=== PATIENT | female | born 1975 | race Caucasian/White ===

== ENCOUNTER 2017-01-19 12:12 | Observation (INO) ==
--- NOTE | 2017-01-19 12:23 | Emergency Department Note ---
Disposition Clinical Impression: Pneumonia, Bacteremia Disposition: Admitted As Inpatient Condition: Fair Referrals: Tyree Quijano CNP [Primary Care Provider] - Forms: ED Satisfaction Letter Time of Disposition: 14:33 ([facility]) General Adult HPI - General Chief complaint: ED Urogenital-Female Stated complaint: UTI Time Seen by Provider: 01/19/17 12:21 Source: patient Mode of arrival: ambulatory Limitations: no limitations Nursing Notes Reviewed: Yes Vital Signs Reviewed: Yes - History of Present Illness HPI Narrative: Patient received a call from her family physician telling her she needed emergency room right away that she had positive blood culture and positive urine culture and that she needs to be evaluated patient presents here the ER and tells me that she is having cough congestion she has CIPD she thought the day when she was at the doctor's office that she had pneumonia they did a urine on her the doctor's office she was told that she had gross amount of leukoesterase and blood and that she had a nasty urinary tract infection she was given Levaquin but is not having any results patient does have a 24-hour catheter in because of her COPD as result the patient is here to request with family physician Onset (ago): day(s) Location: other (generalized ) Radiation: non-radiation Pain Severity: moderate Pain Scale: 5 Quality: aching Consistency: constant Improves with: nothing Worsens with: nothing Associated symptoms: Reports: cough, fever/chills, loss of appetite, malaise, nausea/vomiting, shortness of breath, weakness. Denies: confusion, chest pain, diaphoresis, headaches, seizure, syncope Treatments Prior to Arrival: other (levaquin and has seen her medical provider) - Related Data Home Medications Medication Instructions Recorded Confirmed Gabapentin [Neurontin] 800 mg PO TID 11/21/14 01/19/17 Insulin ASPART [NovoLOG] 0 unit SQ TIDWM 11/21/14 01/19/17 Insulin DETEMIR [Levemir] 50 unit SQ HS 11/21/14 01/19/17 Ibuprofen [Motrin] 800 mg PO Q8HR PRN 03/03/15 01/19/17 Atorvastatin Calcium [Lipitor] 20 mg PO DAILY 08/18/15 01/19/17 Estradiol 1 tab PO DAILY 08/18/15 01/19/17 Progesterone 200 mg PO HS 08/18/15 01/19/17 ARIPiprazole [Abilify] 2 mg PO HS 01/19/17 01/19/17 Oxycodone HCl/Acetaminophen 1 each PO Q8HR 01/19/17 01/19/17 [Percocet 5-325 mg Tablet] Sertraline [Zoloft] 200 mg PO DAILY 01/19/17 01/19/17 Trazodone HCl 150 mg PO HS 01/19/17 01/19/17 Allergies Allergy/AdvReac Type Severity Reaction Status Date / Time cefepime Allergy Rash Verified 11/21/14 08:45 nitrofurantoin Allergy Anaphylaxis Verified 01/19/17 12:14 [From Macrobid] All systems ED: reviewed and negative except as stated. Review of Systems: As Per HPI Constitutional: Reports: fever, weakness. Denies: chills Eyes: Denies: eye pain, eye discharge ENT ED: Denies: ear pain, throat pain Cardiovascular: Denies: chest pain, palpitations, dyspnea on exertion Respiratory: Reports: cough, dyspnea, wheezes. Denies: sputum production Gastrointestinal: Reports: nausea. Denies: abdominal pain, vomiting Genitourinary: Reports: frequency. Denies: urgency, dysuria Musculoskeletal: Denies: back pain, neck pain Integumentary: Denies: rash, abrasion, lesions Neurological: Denies: headache, weakness Psychiatric: Denies: anxiety, depression Endocrine: Denies: fatigue Hematological/Lymphatic: Denies: easy bleeding Allergic/Immunologic: Denies: facial swelling Past Medical History - Past Medical History Attestation: Yes The following information was validated with the patient. Source: patient, old records reviewed, nursing notes reviewed Medical history: Reports: cancer, dementia, diabetes, other (CIPD) Surgical history: Reports: , other (Bone marrow transplant, D&C) Psychiatric history: Reports: anxiety, depression SLP history: Reports: no SLP history - Social History Smoking Status: Former smoker Smokeless Tobacco Status: Yes (Vapor) Alcohol use: Reports: none Drug use: Reports: none Physical Exam - General Limitations: physical limitation (ambulates with a cane due to CIPD) General appearance: alert, in no apparent distress, anxious - Head Head exam: atraumatic, normocephalic, normal inspection - Eye Eye exam: Present: normal appearance, PERRL, EOMI - ENT ENT exam: normal exam, normal oropharynx, mucous membranes moist, normal external ear exam - Neck Neck exam: Present: normal inspection, full ROM, trachea midline - Chest Chest inspection: Present: normal inspection, symmetric chest wall rise - Respiratory Respiratory exam: Present: normal lung sounds bilaterally - Cardiovascular Cardiovascular exam: Present: regular rate, normal rhythm, normal heart sounds - Abdominal Exam Abdominal exam: Present: soft, Non-Tender, normal bowel sounds. Absent: mass, pulsatile mass - Extremities Exam Extremities exam: Present: normal inspection, full ROM, normal capillary refill. Absent: tenderness, pedal edema, joint swelling, calf tenderness - Expanded Lower Extremity Exam Neurovascular/Tendon exam: Present: normal capillary refill, normal fine/light touch. Absent: pulse deficit Gait: antalgic - Back Exam Back exam: Present: normal inspection, full ROM. Absent: muscle spasm - Neurological Exam Neurological exam: Present: alert, oriented X3, CN II-XII intact, normal gait - Psychiatric Psychiatric exam: Present: normal affect, normal mood - Skin Skin exam: Present: warm, dry, intact, normal color Course Course Narrative: Patient is seen and examined laboratory data is repeated and including drawing a blood culture off her 24 catheter patient was then admitted after discussion of the findings a chest x-ray consistent with pneumonia when compared to previous chest x-ray report patient be transferred circinate Dr. Sears stable condition if her calf culture does come up positive she has asked that we send her back to [facility] Vital Signs Temperature 96.8 F L 01/19/17 12:18 Pulse Rate 98 01/19/17 12:18 Respiratory Rate 18 01/19/17 12:18 Blood Pressure 139/78 01/19/17 12:18 O2 Sat by Pulse Oximetry 97 01/19/17 12:18 Temperature 96.8 F L 01/19/17 13:34 Pulse Rate 90 01/19/17 14:42 Respiratory Rate 17 01/19/17 14:42 Blood Pressure 133/76 01/19/17 14:42 O2 Sat by Pulse Oximetry 95 01/19/17 14:42 Oxygen Delivery Oxygen Delivery Room Air Medical Decision Making - [facility] Narrative Medical decision making narrative: Pneumonia bronchitis UTI bacteremia she has Escherichia coli in her bloodstream which is most likely consistent with that of urine but she has a twin Port-A- Cath which could be contamination in addition that we have to consider some underlying atypical pneumonia - Medical Records Medical records reviewed: Yes I reviewed the patient's medical records. - Lab Data Lab results reviewed: Yes I reviewed the patient's lab results. Result diagrams: 01/19/17 12:50 01/19/17 12:50 Lab Results 01/19/17 01/19/17 01/19/17 Range/Units 12:50 12:50 12:50 WBC 13.5 H (4.3-11.1) K/mcL RBC 3.06 L (3.82-4.97) M/mcL Hgb 10.1 L (11.5-15.4) g/dL Hct 29.5 L (35.3-44.9) % MCV 96.4 (83.0-100.0) fL MCH 33.0 (28.0-33.3) pg MCHC 34.2 (31.6-35.5) g/dL RDW 12.7 (11.5-14.5) % Plt Count 244 (140-400) K/mcL MPV 9.8 (9.4-12.4) fL Immature Gran % 0.4 (0-4) % Seg Neutrophils % 84.4 % Lymphocytes % 5.7 % Monocytes % 8.6 % Eosinophils % 0.7 % Basophils % 0.2 % Neutrophils # 11.4 H (1.6-8.9) K/mcL Lymphocytes # 0.8 (0.6-4.6) K/mcL Monocytes # 1.2 (0.0-1.3) K/mcL Eosinophils # 0.1 (0.0-0.6) K/mcL Basophils # 0.0 (0.0-0.2) K/mcL PT (9.4-12.1) Seconds INR APTT 36.9 H (26.0-36.0) Seconds Sodium 140 (136-145) mEq/L Potassium 5.0 H (3.5-4.5) mEq/L Chloride 106 (98-109) mEq/L Carbon Dioxide 21 (19-29) mEq/L BUN 34 H (7-20) mg/dL Creatinine 1.15 H (0.57-1.11) mg/dL Est GFR ( Amer) > 60 (> 60) Est GFR (Non-Af Amer) 52 L (> 60) BUN/Creatinine Ratio 30 H (6-26) Glucose 89 (70-99) mg/dL Calculated Osmolality 297 (280-300) Lactic Acid (0.5-2.2) mmol/L Calcium 9.8 (8.6-10.8) mg/dL Total Bilirubin 0.3 (0.2-1.2) mg/dL AST 32 (5-34) Units/L ALT 27 (0-55) Units/L Alkaline Phosphatase 319 H (38-126) Units/L Serum Total Protein 7.2 (6.0-8.3) g/dL Albumin 1.9 L (3.5-5.0) g/dL Globulin 5.3 H (2.4-3.5) g/dL Albumin/Globulin Ratio 0.4 L (1.1-2.2) 01/19/17 01/19/17 Range/Units 12:50 12:50 WBC (4.3-11.1) K/mcL RBC (3.82-4.97) M/mcL Hgb (11.5-15.4) g/dL Hct (35.3-44.9) % MCV (83.0-100.0) fL MCH (28.0-33.3) pg MCHC (31.6-35.5) g/dL RDW (11.5-14.5) % Plt Count (140-400) K/mcL MPV (9.4-12.4) fL Immature Gran % (0-4) % Seg Neutrophils % % Lymphocytes % % Monocytes % % Eosinophils % % Basophils % % Neutrophils # (1.6-8.9) K/mcL Lymphocytes # (0.6-4.6) K/mcL Monocytes # (0.0-1.3) K/mcL Eosinophils # (0.0-0.6) K/mcL Basophils # (0.0-0.2) K/mcL PT 12.7 H (9.4-12.1) Seconds INR 1.2 APTT (26.0-36.0) Seconds Sodium (136-145) mEq/L Potassium (3.5-4.5) mEq/L Chloride (98-109) mEq/L Carbon Dioxide (19-29) mEq/L BUN (7-20) mg/dL Creatinine (0.57-1.11) mg/dL Est GFR ( Amer) (> 60) Est GFR (Non-Af Amer) (> 60) BUN/Creatinine Ratio (6-26) Glucose (70-99) mg/dL Calculated Osmolality (280-300) Lactic Acid 0.8 (0.5-2.2) mmol/L Calcium (8.6-10.8) mg/dL Total Bilirubin (0.2-1.2) mg/dL AST (5-34) Units/L ALT (0-55) Units/L Alkaline Phosphatase (38-126) Units/L Serum Total Protein (6.0-8.3) g/dL Albumin (3.5-5.0) g/dL Globulin (2.4-3.5) g/dL Albumin/Globulin Ratio (1.1-2.2) - Radiology Data Radiology results reviewed: Yes I reviewed the patient's radiology results. ITS Impressions Chest X-Ray 01/19/17 12:34 IMPRESSION: Focal left-sided airspace disease suspicious for pneumonia. Bilateral opacity may be due to mild edema Small right pleural effusion D/ / Blane Arshad MD / Blane Arshad MD Interpreting Provider: Blane Arshad MD Critical Care Time Critical Care Time: No
[2017-01-19] MEDS ORDERED: *HR* HYDROmorphone (PF) 1 MG/ML SYRINGE IVP ONE (13:12)
[2017-01-19] MEDS ORDERED: Ondansetron 4 MG/2 ML VIAL IVP ONE (13:12)
[2017-01-19 13:31] LABS: Basophils % 0.2 %; Eosinophils # 0.1 K/mcL (0.0-0.6); Eosinophils % 0.7 %; Hematocrit 29.5 % (35.3-44.9); Hemoglobin 10.1 g/dL (11.5-15.4); Immature Granulocytes % 0.4 % (0-4); Lymphocytes # 0.8 K/mcL (0.6-4.6); Lymphocytes % 5.7 %; Mean Corpuscular HGB Conc 34.2 g/dL (31.6-35.5); Mean Corpuscular Volume 96.4 fL (83.0-100.0); Mean Platelet Volume 9.8 fL (9.4-12.4); Monocytes # 1.2 K/mcL (0.0-1.3); Monocytes % 8.6 %; Platelet Count 244 K/mcL (140-400); Red Blood Count 3.06 M/mcL (3.82-4.97); Red Cell Distribution Width 12.7 % (11.5-14.5); Segmented Neutrophils % 84.4 %
[2017-01-19 13:32] LABS: Neutrophils # 11.4 K/mcL (1.6-8.9)
[2017-01-19 13:41] LABS: INR 1.2; Prothrombin Time 12.7 Seconds (9.4-12.1)
[2017-01-19 13:43] LABS: Alanine Aminotransferase 27 Units/L (0-55); Albumin/Globulin Ratio 0.4 (1.1-2.2); Alkaline Phosphatase 319 Units/L (38-126); Aspartate Amino Transferase 32 Units/L (5-34); BUN/Creatinine Ratio 30 (6-26); Bilirubin,Total 0.3 mg/dL (0.2-1.2); Blood Urea Nitrogen 34 mg/dL (7-20); Calcium 9.8 mg/dL (8.6-10.8); Carbon Dioxide 21 mEq/L (19-29); Chloride 106 mEq/L (98-109); Globulin 5.3 g/dL (2.4-3.5); Glucose 89 mg/dL (70-99); Osmolality,Calculated 297 (280-300); Sodium 140 mEq/L (136-145); Total Protein 7.2 g/dL (6.0-8.3); eGFR For African Americans > 60 (> 60); eGFR For Non-African Americans 52 (> 60)
[2017-01-19 13:52] LABS: Albumin 1.9 g/dL (3.5-5.0)
[2017-01-19] MEDS ORDERED: Azithromycin 500 MG in D5% in Water 250 ML IVPB ONE (14:17)
[2017-01-19] MEDS ORDERED: *HR* Promethazine 25 MG/ML VIAL IVP ONE (14:51)
[2017-01-19] MEDS ORDERED: Acetaminophen 325 MG TABLET PO PRN (15:13)
[2017-01-19] MEDS ORDERED: Ibuprofen 800 MG TABLET PO PRN (15:13)
[2017-01-19] MEDS ORDERED: Naloxone 0.4 MG/ML INJ IVP PRN (15:13)
[2017-01-19] MEDS ORDERED: *HR* Dextrose 50 % in Water (Syg) 50 ML SYRINGE IVP PRN (15:13)
[2017-01-19] MEDS ORDERED: D5% in Water 1,000 ML IVC PRN (15:13)
[2017-01-19] MEDS ORDERED: Ibuprofen 400 MG TABLET PO PRN (15:13)
[2017-01-19] MEDS ORDERED: Dextrose Gel 15 GM PO PRN ×2 (15:13)
[2017-01-19] MEDS ORDERED: Ondansetron ODT 4 MG TAB.RAPDIS SL PRN (15:13)
[2017-01-19] MEDS ORDERED: *HR* OxyCODONE/APAP 5/325 TABLET PO SCH (16:00)
[2017-01-19] MEDS: 0.9 % Sodium Chloride 1,000 ML IVC SCH (16:05)
[2017-01-19] MEDS: Gabapentin 400 MG CAPSULE PO SCH ×2 (16:09→20:34)
--- NOTE | 2017-01-19 17:50 | Internal Med History&Physical ---
Date of Encounter: 01/19/17 Time of Encounter: 17:20 Assessment and Plan (1) Bacteremia Current visit: Yes Status: Acute Urine culture report from [facility] was obtained and reviewed which showed Escherichia coli. Chest x-ray showed focal left-sided airspace disease suspicious for pneumonia. She is allergic to cefepime so I will give her IV Levaquin and oral Septra with lactobacillus. (2) Azotemia Current visit: Yes Status: Acute Precise duration unknown. Creatinine was normal at 0.96 on 07/12/2015 but had risen to 1.27 on 12/22/2016. We will give IV fluids and monitor renal indices. (3) Anemia Current visit: Yes Status: Acute Will order anemia testing in a.m. Qualifiers: Anemia type: unspecified type Qualified Code(s): D64.9 - Anemia, unspecified (4) DM type 2 (diabetes mellitus, type 2) Current visit: Yes Status: Acute We will check hemoglobin A1c in a.m. Continue Levemir with Accu-Cheks and SSI Qualifiers: Diabetes mellitus complication status: with unspecified complications Diabetes mellitus intermediate school teacher insulin use: with intermediate school teacher use Qualified Code(s) : E11.8 - Type 2 diabetes mellitus with unspecified complications; Z79.4 - tank terminal gauger (current) use of insulin Internal Medicine - H&P: HPI Chief complaint: Fever and bacteremia Plans for Post Hospital Care: Home History of present illness: Ms. Leiva is a 41 year old female who was instructed by her PCP staff to come to emergency room for possible admission because of positive blood and urine cultures obtained on January 18. She was given Rocephin and Zithromax in the emergency room and admitted to [facility] floor for ongoing care needs. She reports she had a dialysis-type catheter placed in her right subclavian vein at [facility] on January 11 to have plasma exchange done as treatment for CIDP. She has been receiving peripheral venous IVIG infusions approximately every 2 weeks since she was diagnosed with CIDP February 2016. She developed fevers 2- 3 days after the insertion of the catheter. She contacted [facility] on January 17 and was told to go to her PCP for further evaluation. Cultures were done at PCP office and results called to her today as per above with instructions to go to the emergency room for possible admission. Past Med Surg Social Fam HX - Past Medical History Medical history: cancer, diabetes, other Psychiatric history: anxiety, depression - Past Surgical History Surgical History: , other - Social History Smoking Status: Current every day smoker Smokeless Tobacco Status: Yes Alcohol use: none Drug use: none - Family History Father Living Status: Still Living Hx Family Cardiac Disorders: Yes Hx Family Endocrine Disorder: Yes (DM) Mother Living Status: Still Living Internal Medicine - H&P: Meds Gabapentin [Neurontin] 800 mg PO TID 11/21/14 [History] Insulin ASPART [NovoLOG] 0 unit SQ TIDWM 11/21/14 [History] Insulin DETEMIR [Levemir] 50 unit SQ HS 11/21/14 [History] Ibuprofen [Motrin] 800 mg PO Q8HR PRN 03/03/15 [History] Atorvastatin Calcium [Lipitor] 20 mg PO DAILY 08/18/15 [History] Estradiol 1 tab PO DAILY 08/18/15 [History] Progesterone 200 mg PO HS 08/18/15 [History] ARIPiprazole [Abilify] 2 mg PO HS 01/19/17 [History] Oxycodone HCl/Acetaminophen [Percocet 5-325 mg Tablet] 1 each PO Q8HR 01/19/17 [ History] Sertraline [Zoloft] 200 mg PO DAILY 01/19/17 [History] Trazodone HCl 150 mg PO HS 01/19/17 [History] 3 Allergy/AdvReac Type Severity Reaction Status Date / Time cefepime Allergy Rash Verified 11/21/14 08:45 nitrofurantoin Allergy Anaphylaxis Verified 01/19/17 12:14 [From Macrobid] All Systems PM: A 10-system review of systems was performed and is negative for pertinent findings except as documented above in the HPI. Review of systems: Her: She states her weight has increased approximately 22 pounds in the past month Cardiovascular: She has history of hypertension but does not take medication at this time. She denies NM heart failure angina DVT or pulmonary embolus Respiratory: She smoked since age 20 up to 2 packs per day. She denies chronic lung disease and does not use home oxygen GI: She denies disorders of her liver gallbladder or exocrine pancreas : Has had history of kidney stones. She denies other kidney or bladder disorders. Neurologic: She has CIDP as per above. She denies large distribution strokes or seizures. Endocrine: She was diagnosed with DM 2 in 2004 following gestational diabetes diagnosis in 2001. 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 She has remained cancer free since then. She was unaware she had anemia on labs in the emergency room. She denies other blood disorders or malignancies. Psychiatric: She has anxiety and depression but denies other mental health issues Musk skeletal: She denies arthritis gout or other bone joint or muscle disorders. - Constitutional Vitals: Temp Pulse Resp BP Pulse Ox 98.1 F 90 16 142/79 95 01/19/17 14:58 01/19/17 14:42 01/19/17 14:58 01/19/17 14:58 01/19/17 14:42 Exam: Gen.: She is a well-developed well-nourished female who appears in no acute distress at present time HEENT: Head is atraumatic and normocephalic. Eyes: EOMI. There is no scleral icterus. Mouth: Mucosa is moist. Neck: Supple and nontender. There is no thyromegaly or adenopathy noted. Heart: Regular without murmurs gallops or ectopics Lungs: No wheezes or crackles are heard. Abdomen: Soft and nontender. No masses or guarding are noted. Extremities: There is no cyanosis edema or clubbing noted. She has some muscle wasting of the intrinsic muscles of her hands. Neurologic: Mental status: She is talkative and a good historian. Cranial nerves: Smile is symmetric. Forehead wrinkles bilaterally. Tongue protrudes midline. EOMI. Motor: She appears to have some loss of fine motor control of her hands. She is unable to dorsiflex at the ankles. Cerebellar: Finger to nose is intact bilaterally. Skin: Warm and dry Internal Med - H&P Results - Labs CBC & Chem 7: 01/19/17 12:50 01/19/17 12:50
[2017-01-19] MEDS: Levofloxacin 500 MG/100 ML 500 MG/100 ML BAG IVPB SCH (18:39)
[2017-01-19] MEDS: Insulin LISPRO 300 UNITS/3 ML VIAL SQ SCH (20:25)
[2017-01-19] MEDS: Sulfamethoxazole/Trimeth DS 1 EACH TABLET PO SCH (20:34)
[2017-01-19] MEDS: Lactobacillus 1 EACH CAP.SPRINK PO SCH (20:34)
[2017-01-19] MEDS ORDERED: PROGESTERONE 200 MG PO SCH (21:00)
[2017-01-19] MEDS ORDERED: Insulin DETEMIR 100 UNIT/ML X5UNITS SQ SCH (21:00)
[2017-01-19] MEDS ORDERED: traZODone 50 MG TABLET PO SCH (21:00)
[2017-01-19] MEDS ORDERED: ARIPiprazole 2 MG TABLET PO SCH (21:00)
[2017-01-19] MEDS: *HR* OxyCODONE/APAP 5/325 TABLET PO PRN (21:30)
[2017-01-20] MEDS: *HR* OxyCODONE/APAP 5/325 TABLET PO PRN ×3 (02:10→10:28)
[2017-01-20 05:50] LABS: Basophils % 0.1 %; Eosinophils # 0.1 K/mcL (0.0-0.6); Eosinophils % 0.9 %; Hematocrit 28.2 % (35.3-44.9); Hemoglobin 9.4 g/dL (11.5-15.4); Immature Granulocytes % 0.9 % (0-4); Lymphocytes # 1.1 K/mcL (0.6-4.6); Lymphocytes % 11.2 %; Mean Corpuscular HGB Conc 33.3 g/dL (31.6-35.5); Mean Corpuscular Volume 98.9 fL (83.0-100.0); Mean Platelet Volume 10.8 fL (9.4-12.4); Monocytes % 10.2 %; Neutrophils # 7.8 K/mcL (1.6-8.9); Platelet Count 263 K/mcL (140-400); Red Blood Count 2.85 M/mcL (3.82-4.97); Red Cell Distribution Width 12.9 % (11.5-14.5); Segmented Neutrophils % 76.7 %
[2017-01-20] MEDS: 0.9 % Sodium Chloride 1,000 ML IVC SCH (05:50)
[2017-01-20 06:05] LABS: BUN/Creatinine Ratio 31 (6-26); Blood Urea Nitrogen 31 mg/dL (7-20); Calcium 9.7 mg/dL (8.6-10.8); Carbon Dioxide 20 mEq/L (19-29); Chloride 109 mEq/L (98-109); Glucose 202 mg/dL (70-99); Osmolality,Calculated 302 (280-300); Potassium 4.5 mEq/L (3.5-4.5); Sodium 140 mEq/L (136-145); eGFR For African Americans > 60 (> 60); eGFR For Non-African Americans > 60 (> 60)
[2017-01-20] MEDS: Insulin LISPRO 300 UNITS/3 ML VIAL SQ SCH ×2 (07:43→12:19)
[2017-01-20] MEDS: Lactobacillus 1 EACH CAP.SPRINK PO SCH (08:54)
[2017-01-20] MEDS: Sulfamethoxazole/Trimeth DS 1 EACH TABLET PO SCH (08:54)
[2017-01-20] MEDS: Gabapentin 400 MG CAPSULE PO SCH (08:54)
[2017-01-20] MEDS ORDERED: ESTRADIOL PO SCH (09:00)
[2017-01-20] MEDS: Levofloxacin 500 MG/100 ML 500 MG/100 ML BAG IVPB SCH (10:24)
[2017-01-20 11:40] VITALS: BP 148/77
--- NOTE | 2017-01-20 12:52 | Discharge Summary ---
Date of Encounter: 01/20/17 Time of Encounter: 09:05 - Discharge Diagnosis (1) Bacteremia Priority: Primary Status: Acute (2) Azotemia Priority: Secondary Status: Resolved (3) Anemia Priority: Secondary Status: Acute Qualifiers: Anemia type: unspecified type Qualified Code(s): D64.9 - Anemia, unspecified (4) DM type 2 (diabetes mellitus, type 2) Priority: Secondary Status: Chronic Qualifiers: Diabetes mellitus complication status: with unspecified complications Diabetes mellitus retirement insulin use: with assistant terminal manager use Qualified Code(s) : E11.8 - Type 2 diabetes mellitus with unspecified complications; Z79.4 - regional intermodal truck driver (current) use of insulin - Discharge Medications Prescriptions: Lactobacillus [Culturelle] 1 each PO BID #14 cap.sprink levoFLOXacin [Levaquin] 500 mg PO DAILY #7 tablet Sulfamethoxazole/Trimeth DS [Bactrim DS] 1 each PO BID #14 tablet Home Medications: Gabapentin [Neurontin] 800 mg PO TID 11/21/14 [History] Insulin ASPART [NovoLOG] 0 unit SQ TIDWM 11/21/14 [History] Insulin DETEMIR [Levemir] 50 unit SQ HS 11/21/14 [History] Ibuprofen [Motrin] 800 mg PO Q8HR PRN 03/03/15 [History] Atorvastatin Calcium [Lipitor] 20 mg PO DAILY 08/18/15 [History] Estradiol 1 tab PO DAILY 08/18/15 [History] Progesterone 200 mg PO HS 08/18/15 [History] ARIPiprazole [Abilify] 2 mg PO HS 01/19/17 [History] Oxycodone HCl/Acetaminophen [Percocet 5-325 mg Tablet] 1 each PO Q8HR 01/19/17 [ History] Sertraline [Zoloft] 200 mg PO DAILY 01/19/17 [History] Trazodone HCl 150 mg PO HS 01/19/17 [History] Lactobacillus [Culturelle] 1 each PO BID #14 cap.sprink 01/20/17 [Rx] Sulfamethoxazole/Trimeth DS [Bactrim DS] 1 each PO BID #14 tablet 01/20/17 [Rx] levoFLOXacin [Levaquin] 500 mg PO DAILY #7 tablet 01/20/17 [Rx] Allergies/Adverse Reactions: 3 Allergy/AdvReac Type Severity Reaction Status Date / Time cefepime Allergy Rash Verified 11/21/14 08:45 nitrofurantoin Allergy Anaphylaxis Verified 01/19/17 12:14 [From Macrobid] Date of admission: 01/19/17 14:52 Primary care physician: Tyree Quijano CNP Consults: 01/19/17 16:21 Consult to In Flight Refueling Manager [CONS] Routine Reason for SW Consult: has home health - Patient Status Disposition: Home, Self-Care Condition: Fair Functional capacity at discharge: independent ambulation Overall status at discharge: patient is progressing back to baseline - Discharge Instructions Follow Up With: Tyree Quijano CNP [Primary Care Provider] - 1 week - Diet and Activity Activity: resume usual activities as tolerated Diet: advance to your usual diet Hospital course: Ms. Leiva is a 41 year old female who was instructed by her PCP staff to come to emergency room for possible admission because of positive blood and urine cultures obtained on January 18. She was given Rocephin and Zithromax in the emergency room and admitted to [facility] for ongoing care needs. Initial orders were written by the emergency room physician. I saw her on January 19 and performed the history and physical. Her urine culture report from [facility] was obtained and reviewed which showed Escherichia coli. She was started on Levaquin and Septra for UTI and pneumonia. Lactobacillus was also given. She had good clinical response and remained afebrile and WBC normalized to 10.1 with improvement in the differential. When I saw her on January 20 she was adamant she be discharged home despite my recommendation she should remain in the hospital for at least 24 hours for additional IV therapy to lessen the risk of bacteria seeding of her recently placed central line. She was discharged home with instructions to follow with her PCP within one week. She will continue on Septra and Levaquin with lactobacillus for an additional week. Her azotemia improved with creatinine decreasing to 0.99 and estimated GFR greater than 60. PCP and/or [facility] physicians can order a anemia workup as needed. Encouraged her to stop smoking. - Time Spent with Patient Total time spent providing and/or coordinating discharge services: - Constitutional Vitals: Temp Pulse Resp BP Pulse Ox 98.6 F 101 16 148/77 91 01/20/17 11:23 01/20/17 11:23 01/20/17 11:23 01/20/17 11:23 01/20/17 11:23
[2017-01-20] MEDS ORDERED: FLUARIX QUAD 2017-18 36MOS UP/PF 0.5 ML SYRINGE IM ONE (13:15)
[2017-01-20 13:29] LABS: Estimated Average Glucose > 355 mg/dl; Hemoglobin A1C >= 14.1 %
[2017-01-20] MEDS ORDERED: Azithromycin 500 MG in D5% in Water 250 ML IVPB SCH (14:00)
== END 2017-01-20 13:58 | disposition home or self-care (01) ==
LOC: INPPIK 12:12 → EMEROOPIK 12:12 → INPPIK 15:25
PROVIDERS: ADMIT Internal Medicine; ATTEND Internal Medicine

== ENCOUNTER 2017-04-11 01:30 | Observation (INO) ==
--- NOTE | 2017-04-11 02:12 | Emergency Department Note ---
Disposition Clinical Impression: RANDY (acute kidney injury), OSCAR (dyspnea on exertion) Disposition: Admitted As Inpatient Condition: Good SOB HPI - General Chief Complaint: ED Shortness of Breath/Dyspnea Stated Complaint: luz Time Seen by Provider: 04/11/17 01:56 Source: patient, EMS Mode of arrival: EMS Limitations: no limitations Nursing Notes Reviewed: Yes Vital Signs Reviewed: Yes - History of Present Illness Patient presents to the ED via EMS with complaint of shortness of breath. States it began just before midnight while she was lying in bed. States when she got up to walk around it got worse when she exerted herself and improved when she rested again. She denies any chest pain. No recent cough, congestion or rhinorrhea. Denies any leg swelling. No fever or chills. Denies any history of chronic lung problems. She does have diabetes, hypertension, high cholesterol and CIPD. States she was admitted [facility] about 2 weeks ago for chest pain and was told she had "early pneumonia" at that time. She was on [facility] and was sent home with a 3 day course of Levaquin. States she completed all these medications. States she had a echocardiogram and other tests by cardiology while she was in the ED and was told she did not have a heart attack. States she is not had symptoms like this before. She is a pack-a-day smoker for 20 years. She receives IVIG for her CIPD and had an infusion yesterday. States she has never had any side effects after her previous infusions. - Related Data Home Medications Medication Instructions Recorded Confirmed Gabapentin [Neurontin] 800 mg PO BID 11/21/14 04/11/17 Insulin ASPART [NovoLOG] 2 - 10 unit SQ TIDWM 11/21/14 04/11/17 Insulin DETEMIR [Levemir] 30 unit SQ HS 11/21/14 04/11/17 Progesterone,Micronized 200 mg PO HS #0 08/18/15 04/11/17 [Progesterone] Oxycodone HCl/Acetaminophen 1 tab PO Q8HR PRN 01/19/17 04/11/17 [Percocet 5-325 mg Tablet] Sertraline [Zoloft] 200 mg PO DAILY 01/19/17 04/11/17 Trazodone HCl 150 mg PO HS 01/19/17 04/11/17 ARIPiprazole [Abilify] 5 mg PO DAILY 02/04/17 04/11/17 Lisinopril [Zestril] 10 mg PO DAILY 02/04/17 04/11/17 Aspirin [Lo-Dose Aspirin EC] 81 mg PO DAILY 03/31/17 04/11/17 Allergies Allergy/AdvReac Type Severity Reaction Status Date / Time cefepime Allergy Rash Verified 03/31/17 11:12 nitrofurantoin Allergy Anaphylaxis Verified 03/31/17 11:12 [From Macrobid] Constitutional: Denies: fever, chills, weakness, weight change Eyes: Denies: eye pain, eye discharge, vision change ENT ED: Denies: ear pain, throat pain, dental pain, hearing loss, epistaxis, congestion, dysphagia Cardiovascular: Reports: as per HPI, dyspnea on exertion. Denies: chest pain, palpitations, edema, syncope Respiratory: Reports: as per HPI, dyspnea. Denies: cough, wheezes, hemoptysis, stridor Gastrointestinal: Denies: abdominal pain, nausea, vomiting, diarrhea, constipation, hematemesis, melena, hematochezia Genitourinary: Denies: dysuria, frequency, hematuria, discharge Musculoskeletal: Denies: back pain, neck pain, arthralgia, myalgia Integumentary: Denies: rash, abrasion, lesions Neurological: Denies: headache, weakness, numbness, paresthesias, confusion, abnormal gait, vertigo Psychiatric: Denies: anxiety, depression, suicidal thoughts, homicidal thoughts , auditory hallucinations, visual hallucinations Endocrine: Denies: fatigue Hematological/Lymphatic: Denies: easy bleeding, easy bruising Allergic/Immunologic: Denies: facial swelling, urticaria Past Medical History - Past Medical History Medical history: Reports: cancer, diabetes, hyperlipidemia, hypertension, other Surgical history: Reports: , other Psychiatric history: Reports: anxiety, depression [employer] history: Reports: no [employer] history - Social History Smoking Status: Current every day smoker Smokeless Tobacco Status: No Alcohol use: Reports: none Drug use: Reports: none Physical Exam - General Limitations: no limitations General appearance: alert, in no apparent distress - Head Head exam: atraumatic, normocephalic, normal inspection - Eye Eye exam: Present: normal appearance, PERRL, EOMI - ENT ENT exam: normal exam, normal oropharynx, mucous membranes moist - Neck Neck exam: Present: normal inspection, full ROM, trachea midline - Chest Chest inspection: Present: normal inspection, symmetric chest wall rise - Respiratory Respiratory exam: Present: normal lung sounds bilaterally. Absent: respiratory distress, wheezes - Cardiovascular Cardiovascular exam: Present: regular rate, normal rhythm, normal heart sounds - Abdominal Exam Abdominal exam: Present: soft, Non-Tender. Absent: tenderness, distention, guarding, rebound, rigidity - Extremities Exam Extremities exam: Present: normal inspection, full ROM. Absent: tenderness, pedal edema - Neurological Exam Neurological exam: Present: alert, oriented X3 - Psychiatric Psychiatric exam: Present: normal affect, normal mood - Skin Skin exam: Present: warm, dry, intact, normal color Course Course Narrative: Patient presents to the ED with dyspnea on exertion with no associated chest pain or other symptoms. Oxygen saturation on arrival on room air is 94%. Lungs clear. EKG on arrival showed a sinus rhythm with no ischemic changes. Review of records shows that she did have possible right lower lobe pneumonia during her last hospitalization. Cardiology workup including an echocardiogram , serial troponins and EKGs. Echocardiogram showed EF of 55-60% with mild left ventricular diastolic dysfunction. She did have elevated troponins that decreased during her stay. She is supposed to follow-up with cardiology as an outpatient for outpatient stress testing according to records. Patient underwent walking pulse ox exam here in the ED and did have some desaturations into the low 90s and upper 80s but recovered without the need for oxygen. Will obtain repeat chest x-ray. - Reevaluation(s) Reevaluation #1: Chest x-ray showed some pulmonary vascular congestion and interstitial prominence but no residual pneumonia. Will check routine labs given her cardiac history and x-ray findings, including BNP and troponin. Reevaluation #2: Troponin is mildly elevated but lower than when she was last discharged from the hospital. BNP is elevated in the 500s. Creatinine is also elevated compared to baseline at time of discharge indicating likely acute kidney injury. Given both her AK I and findings of mild CHF she will benefit from both gentle IV fluids as well as Lasix with continued monitoring of her creatinine. Discussed all test results with patient and recommendation for admission to which she was agreeable. I spoke to the hospitalist on-call, Dr. Sears who accepted the patient. She was started on gentle IV hydration and a single dose of IV Lasix in the ED. She is also given her usual dose of Percocet for her chronic CIPD pain. Vital Signs Temperature 97.9 F 04/11/17 01:30 Pulse Rate 104 04/11/17 01:30 Respiratory Rate 18 04/11/17 01:30 Blood Pressure 154/93 04/11/17 01:30 O2 Sat by Pulse Oximetry 94 04/11/17 01:30 Temperature 97.9 F 04/11/17 01:30 Pulse Rate 104 04/11/17 05:46 Respiratory Rate 20 04/11/17 05:46 Blood Pressure 158/96 04/11/17 04:28 O2 Sat by Pulse Oximetry 100 04/11/17 05:46 Oxygen Delivery Oxygen Delivery Nasal Cannula Shortness of Breath/Dyspnea - Differential Diagnosis Likely: acute exacerbation of chronic obstructive airways disease, congestive heart failure, pneumonia - Medical Records Medical records reviewed: Yes I reviewed the patient's medical records. - Lab Data Lab results reviewed: Yes I reviewed the patient's lab results. Result diagrams: 04/11/17 03:38 04/11/17 03:38 Lab Results 04/11/17 04/11/17 04/11/17 Range/Units 03:38 03:38 03:38 WBC 9.4 (4.3-11.1) K/mcL RBC 2.63 L (3.82-4.97) M/mcL Hgb 9.0 L (11.5-15.4) g/dL Hct 26.4 L (35.3-44.9) % MCV 100.4 H (83.0-100.0) fL MCH 34.2 H (28.0-33.3) pg MCHC 34.1 (31.6-35.5) g/dL RDW 14.2 (11.5-14.5) % Plt Count 231 (140-400) K/mcL MPV 9.4 (9.4-12.4) fL Immature Gran % 0.2 (0-4) % Seg Neutrophils % 79.8 % Lymphocytes % 12.6 % Monocytes % 5.5 % Eosinophils % 1.6 % Basophils % 0.3 % Neutrophils # 7.5 (1.6-8.9) K/mcL Lymphocytes # 1.2 (0.6-4.6) K/mcL Monocytes # 0.5 (0.0-1.3) K/mcL Eosinophils # 0.2 (0.0-0.6) K/mcL Basophils # 0.0 (0.0-0.2) K/mcL Sodium (136-145) mEq/L Potassium (3.5-4.5) mEq/L Chloride (98-109) mEq/L Carbon Dioxide (19-29) mEq/L BUN (7-20) mg/dL Creatinine (0.57-1.11) mg/dL Est GFR ( Amer) (> 60) Est GFR (Non-Af Amer) (> 60) BUN/Creatinine Ratio (6-26) Glucose (70-99) mg/dL Calculated Osmolality (280-300) Calcium (8.6-10.8) mg/dL Troponin I 0.04 H* (0-0.03) ng/mL B-Natriuretic Peptide 572 H (0-100) pg/mL 04/11/ Range/Units 03:38 WBC (4.3-11.1) K/mcL RBC (3.82-4.97) M/mcL Hgb (11.5-15.4) g/dL Hct (35.3-44.9) % MCV (83.0-100.0) fL MCH (28.0-33.3) pg MCHC (31.6-35.5) g/dL RDW (11.5-14.5) % Plt Count (140-400) K/mcL MPV (9.4-12.4) fL Immature Gran % (0-4) % Seg Neutrophils % % Lymphocytes % % Monocytes % % Eosinophils % % Basophils % % Neutrophils # (1.6-8.9) K/mcL Lymphocytes # (0.6-4.6) K/mcL Monocytes # (0.0-1.3) K/mcL Eosinophils # (0.0-0.6) K/mcL Basophils # (0.0-0.2) K/mcL Sodium 139 (136-145) mEq/L Potassium 4.6 H (3.5-4.5) mEq/L Chloride 107 (98-109) mEq/L Carbon Dioxide 27 (19-29) mEq/L BUN 27 H (7-20) mg/dL Creatinine 1.42 H (0.57-1.11) mg/dL Est GFR ( Amer) 49 L (> 60) Est GFR (Non-Af Amer) 41 L (> 60) BUN/Creatinine Ratio 19 (6-26) Glucose 198 H (70-99) mg/dL Calculated Osmolality 299 (280-300) Calcium 8.4 L (8.6-10.8) mg/dL Troponin I (0-0.03) ng/mL B-Natriuretic Peptide (0-100) pg/mL - Radiology Data Radiology results reviewed: Yes I reviewed the patient's radiology results. ITS Impressions Chest X-Ray 04/11/17 02:08 IMPRESSION: Central vascular congestion and generalized interstitial prominence. No focal airspace consolidation, sizeable pleural effusion, or pneumothorax. D/ / Steven Bocanegra MD / Steven Bocanegra MD Interpreting Provider: Steven Bocanegra MD - EKG Data EKG attestation: Yes I reviewed and interpreted this EKG. EKG shows normal: Reports: sinus rhythm Rate: Reports: normal Rhythm: Reports: NSR [place]/QRS: Reports: normal Interpretation: Reports: no acute changes, unchanged when compared to prior tracing (date) (03/31/17), nonspecific ST-T wave changes
[2017-04-11 03:48] LABS: Basophils % 0.3 %; Eosinophils # 0.2 K/mcL (0.0-0.6); Eosinophils % 1.6 %; Hematocrit 26.4 % (35.3-44.9); Immature Granulocytes % 0.2 % (0-4); Lymphocytes # 1.2 K/mcL (0.6-4.6); Lymphocytes % 12.6 %; Mean Corpuscular HGB Conc 34.1 g/dL (31.6-35.5); Mean Corpuscular Hemoglobin 34.2 pg (28.0-33.3); Mean Corpuscular Volume 100.4 fL (83.0-100.0); Mean Platelet Volume 9.4 fL (9.4-12.4); Monocytes # 0.5 K/mcL (0.0-1.3); Monocytes % 5.5 %; Neutrophils # 7.5 K/mcL (1.6-8.9); Platelet Count 231 K/mcL (140-400); Red Blood Count 2.63 M/mcL (3.82-4.97); Red Cell Distribution Width 14.2 % (11.5-14.5); Segmented Neutrophils % 79.8 %
[2017-04-11 04:01] LABS: Calcium 8.4 mg/dL (8.6-10.8); Potassium 4.6 mEq/L (3.5-4.5)
[2017-04-11] MEDS ORDERED: *HR* OxyCODONE/APAP 5/325 TABLET PO ONE (04:23)
[2017-04-11] MEDS ORDERED: Furosemide 20 MG/2 ML VIAL IVP ONE (04:26)
[2017-04-11] MEDS ORDERED: Naloxone 0.4 MG/ML INJ IVP PRN ×2 (04:28→05:35)
[2017-04-11] MEDS ORDERED: 0.9 % Sodium Chloride 1,000 ML IVC SCH ×2 (04:30→05:35)
[2017-04-11] MEDS ORDERED: Dextrose Gel 15 GM PO PRN ×2 (05:35)
[2017-04-11] MEDS ORDERED: *HR* OxyCODONE/APAP 5/325 TABLET PO PRN (05:35)
[2017-04-11] MEDS ORDERED: D5% in Water 1,000 ML IVC PRN (05:35)
[2017-04-11] MEDS ORDERED: *HR* Dextrose 50 % in Water (Syg) 50 ML SYRINGE IVP PRN (05:35)
[2017-04-11] MEDS ORDERED: Insulin LISPRO 300 UNITS/3 ML VIAL SQ SCH (07:30)
[2017-04-11] MEDS ORDERED: ARIPiprazole 5 MG TABLET PO SCH (09:00)
[2017-04-11] MEDS ORDERED: Aspirin Enteric Coated 81 MG Tablet PO SCH (09:00)
[2017-04-11] MEDS ORDERED: Gabapentin 400 MG CAPSULE PO SCH (09:00)
[2017-04-11 10:05] VITALS: BP 132/81
--- NOTE | 2017-04-11 12:09 | Internal Med History&Physical ---
Date of Encounter: 04/11/17 Time of Encounter: 11:35 Assessment and Plan (1) Dyspnea Current visit: Yes Status: Acute Now resolved, etiology uncertain. I explained to her the echocardiogram showed increased thickness of the interventricular septum and posterior wall and she had elevated BNP peptide. Will increase lisinopril to 20 mg daily to assist in heart failure and blood pressure. Qualifiers: Dyspnea type: unspecified Qualified Code(s): R06.00 - Dyspnea, unspecified Internal Medicine - H&P: HPI Chief complaint: Dyspnea Admitted From: Emergency Dept Plans for Post Hospital Care: Home History of present illness: Ms. Leiva is a 41 year old female who came to emergency room stating she had onset of dyspnea approximately midnight while lying in bed at leisure. She had felt no dyspnea earlier in the day with her usual activities. There was no pain or cough associated with the dyspnea. She called the squad and was brought to emergency room. Evaluation showed slight azotemia, elevated BN peptide, and persistent anemia. She was admitted to [facility] floor for ongoing care needs. She states her dyspnea has resolved and she wishes to be discharged home now. Her respiratory history is significant for having smoked since age 20 up to 2 packs per day. She denies chronic lung disease and does not use home oxygen. Her cardiovascular history is significant for hypertension. She was hospitalized approximately 10 days ago at [facility] with chest pain. Though her troponins were slightly elevated it was not felt she sustained a NSTEMI. Echocardiogram showed LVEF of 55-60%. There was no significant valvular abnormality. E/A ratio was 0.8 and she was felt to have mild diastolic dysfunction. She was not told she had increased thickness of interventricular septum and posterior wall. She denies CA angina DVT or pulmonary embolus. Past Med Surg Social Fam HX - Past Medical History Medical history: cancer, diabetes, hyperlipidemia, hypertension, other Psychiatric history: anxiety, depression - Past Surgical History Surgical History: , other - Social History Smoking Status: Current every day smoker Smokeless Tobacco Status: No Alcohol use: none Drug use: none - Family History Brother Family Member Ethnicity: Non- Living Status: Still Living Father Family Member Ethnicity: Non- Living Status: Still Living Hx Family Cardiac Disorders: Yes (HD, CA@60) Hx Family Endocrine Disorder: Yes (DM) Mother Family Member Ethnicity: Non- Living Status: Still Living Internal Medicine - H&P: Meds Gabapentin [Neurontin] 800 mg PO BID 11/21/14 [History] Insulin ASPART [NovoLOG] 2 - 10 unit SQ TIDWM 11/21/14 [History] Insulin DETEMIR [Levemir] 30 unit SQ HS 11/21/14 [History] Progesterone,Micronized [Progesterone] 200 mg PO HS #0 08/18/15 [History] Oxycodone HCl/Acetaminophen [Percocet 5-325 mg Tablet] 1 tab PO Q8HR PRN [History] Sertraline [Zoloft] 200 mg PO DAILY 01/19/17 [History] Trazodone HCl 150 mg PO HS 01/19/17 [History] ARIPiprazole [Abilify] 5 mg PO DAILY 02/04/17 [History] Lisinopril [Zestril] 10 mg PO DAILY 02/04/17 [History] Aspirin [Lo-Dose Aspirin EC] 81 mg PO DAILY 03/31/17 [History] 3 Allergy/AdvReac Type Severity Reaction Status Date / Time cefepime Allergy Rash Verified 03/31/17 11:12 nitrofurantoin Allergy Anaphylaxis Verified 03/31/17 11:12 [From Macrobid] All Systems PM: A 10-system review of systems was performed and is negative for pertinent findings except as documented above in the HPI. Review of systems: Review of systems from her December 2016 [facility] hospitalization were reviewed and revised as below. Gen.: Her weight has been stable at approximately 82 kg since December 2016 hospitalization. Cardiovascular: As per history of present illness Respiratory: As per history of present illness GI: She denies disorders of her liver gallbladder or exocrine pancreas : Has had history of kidney stones. She denies other kidney or bladder disorders. Neurologic: She has CIDP diagnosed February 2016. She receives weekly IVIG and follows at [facility] on a regular basis every 3-4 months. She denies large distribution strokes or seizures. Endocrine: She was diagnosed with DM 2 in 2004 following gestational diabetes diagnosis in 2001. 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 She has remained cancer free since then. She has anemia but denies other blood disorders or malignancies. Psychiatric: She has anxiety and depression but denies other mental health issues Musk skeletal: She denies arthritis gout or other bone joint or muscle disorders. - Constitutional Vitals: Temp Pulse Resp BP Pulse Ox 98.2 F 90 18 132/81 97 04/11/17 10:03 04/11/17 10:03 04/11/17 10:03 04/11/17 10:03 04/11/17 10:03 Exam: Gen.: She is a well-developed well-nourished female resting comfortably in bed who appears in no acute distress at present time. She denies dyspnea or pain. HEENT: Head is atraumatic and normal cephalic. Eyes: EOMI. There is no scleral icterus. Mouth: Mucosa is moist. Neck: Supple and nontender. There is no thyromegaly or adenopathy noted. Heart: Regular without murmurs gallops or ectopics Lungs: No wheezes or crackles are heard. Abdomen: Soft and nontender. No masses or guarding are noted. Extremities: There is no cyanosis edema or clubbing noted. Dorsalis pedis and posterior tibial pulses are trace to 1+ palpable bilaterally. Neurologic: Mental status: She is talkative and a good historian. Cranial nerves: Smile is symmetric. Forehead wrinkles bilaterally. Tongue protrudes midline. EOMI. Motor: There is no pronator drift. She appears to have some decreased strength in her arms to observation of random movements. She has difficulty dorsiflexing her feet. Cerebellar: Finger to nose is intact bilaterally. Skin: Warm and dry Internal Med - H&P Results - Labs CBC & Chem 7: 04/11/17 03:38 04/11/17 03:38 - VTE Reasons for not Prescribing Prophylaxis: Treatment not Indicated - Low risk for VTE
--- NOTE | 2017-04-11 12:23 | Discharge Summary ---
Date of Encounter: 04/11/17 Time of Encounter: 11:35 - Discharge Diagnosis (1) Dyspnea Priority: Primary Status: Acute Qualifiers: Dyspnea type: unspecified Qualified Code(s): R06.00 - Dyspnea, unspecified - Discharge Medications Home Medications: Gabapentin [Neurontin] 800 mg PO BID 11/21/14 [History] Insulin ASPART [NovoLOG] 2 - 10 unit SQ TIDWM 11/21/14 [History] Insulin DETEMIR [Levemir] 30 unit SQ HS 11/21/14 [History] Progesterone,Micronized [Progesterone] 200 mg PO HS #0 08/18/15 [History] Oxycodone HCl/Acetaminophen [Percocet 5-325 mg Tablet] 1 tab PO Q8HR PRN [History] Sertraline [Zoloft] 200 mg PO DAILY 01/19/17 [History] Trazodone HCl 150 mg PO HS 01/19/17 [History] ARIPiprazole [Abilify] 5 mg PO DAILY 02/04/17 [History] Aspirin [Lo-Dose Aspirin EC] 81 mg PO DAILY 03/31/17 [History] Lisinopril [Zestril] 20 mg PO DAILY #0 04/11/17 [Rx] Allergies/Adverse Reactions: 3 Allergy/AdvReac Type Severity Reaction Status Date / Time cefepime Allergy Rash Verified 03/31/17 11:12 nitrofurantoin Allergy Anaphylaxis Verified 03/31/17 11:12 [From Macrobid] Date of admission: 04/11/17 04:46 Primary care physician: Tyree Quijano CNP - Patient Status Disposition: Home, Self-Care Condition: Good Functional capacity at discharge: uses cane/walker Overall status at discharge: patient is progressing back to baseline - Discharge Instructions Follow Up With: Tyree Quijano CNP [Primary Care Provider] - - Diet and Activity Activity: resume usual activities as tolerated Diet: advance to your usual diet Hospital course: Ms. Leiva is a 41 year old female who came to emergency room stating she had onset of dyspnea approximately midnight while lying in bed at leisure. She had felt no dyspnea earlier in the day with her usual activities. There was no pain or cough associated with the dyspnea. She called the squad and was brought to emergency room. Evaluation showed slight azotemia, elevated BN peptide, and persistent anemia. She was admitted to [facility] floor for ongoing care needs. Initial orders were written by the emergency room physician. I saw her in the late morning of April 11 and performed a history, physical and discharge. By the time I saw her the dyspnea had resolved and she felt back to her baseline. I encouraged her to stay until April 12 but she stated it was her son's birthday and she wished to be discharged home. I will increase lisinopril to 20 mg daily to assist in blood pressure and heart failure. She will follow with her PCP Tyree Quijano CNP within 1 week. She reports she has a cardiology appointment scheduled in a few weeks with an [facility] solvent plant treater. I encouraged her to discuss the echocardiogram report in detail with them. - Time Spent with Patient Total time spent providing and/or coordinating discharge services: - Constitutional Vitals: Temp Pulse Resp BP Pulse Ox 98.2 F 90 18 132/81 97 04/11/17 10:03 04/11/17 10:03 04/11/17 10:03 04/11/17 10:03 04/11/17 10:03 - VTE Reasons for not Prescribing Prophylaxis: Treatment not Indicated - Low risk for VTE
--- NOTE | 2017-04-11 20:20 | Electrocardiograph Report ---
[address] [address] Test Date: 2017-04-11 Pat Name: Naa Leiva Department: [id number] Room: [facility] Gender: F Pyridine Operator: [id number] : 1975 Requested By: Lisa Kaye Order Number: [id number] Reading MD: Erick Aiken MD Measurements Intervals [place] Rate: 97 P: 49 TX: 160 QRS: 72 QRSD: 81 T: 92 QT: 343 QTc: 397 Interpretive Statements SINUS RHYTHM Electronically Signed On 04-11-2017 20:19:06 EST by Erick Aiken MD
[2017-04-11] MEDS ORDERED: Insulin DETEMIR 100 UNIT/ML X5UNITS SQ SCH (21:00)
[2017-04-11] MEDS ORDERED: traZODone 50 MG TABLET PO SCH (21:00)
[2017-04-11] MEDS ORDERED: NON-FORMULARY MEDICATION 1 EACH EACH (Insulin Detemir 30 UNIT) SQ SCH (21:00)
[2017-04-11] MEDS ORDERED: PROGESTERONE MICRONIZED 200 MG PO SCH (21:00)
== END 2017-04-11 13:43 | disposition home or self-care (01) ==
LOC: EMEROOPIK 01:30 → INPPIK 01:30
PROVIDERS: ADMIT Student in an Organized Health Care Education/Training Program; ATTEND Internal Medicine